=== PATIENT | female | born 1960 | race Caucasian/White ===

== ENCOUNTER 2018-01-11 16:12 | Emergency (ER) | payer OTHER ==
[~2018-01-11] VITALS: Ht 162.6 cm; Wt 59.0 kg
[~2018-01-11 16:12] MED LIST: ALBU17I INH; CYCL5TAB PO; LORTA5 PO; MELO7.5T PO; NEFA200T PO
[2018-01-11 16:29] VITALS: BP 149/111; PULSE 104; RESP 20; TEMP 98.1; O2SAT 98
[2018-01-11] MEDS ORDERED: SYMB80AE INH (16:34)
--- NOTE | 2018-01-11 17:29 | PD ---
HPI Chief Complaint: Respiratory Symptoms Time Seen by Provider: 17:21 Travel History International Travel<30 days: No Contact w/Intl Traveler<30days: No Traveled to known affect area: No History of Present Illness HPI 57-year-old female presents to the emergency department under law enforcement custody with complaint of chest tightness and shortness of breath after being put in the back of the police car with no air conditioning, per the patient. She said it was too hot and it exacerbated her asthma/COPD. She uses her albuterol inhaler 2 hours ago with good relief of symptoms. She says her symptoms are better now. Reports wheezing that has also improved after using her albuterol inhaler. She also reports that she was supposed to be picking up her prescriptions for antibiotics for her bronchitis that she was diagnosed with yesterday by her primary care provider. She has no other emergent complaints. Symptoms relieved by albuterol inhaler. Aggravated by hot air in the back of the police car. Symptoms are mild in severity. Primary care provider is Dr. Berumen. No known allergies. History of asthma and COPD. Has no other medical complaints. No other modifying factors or associated signs and symptoms. PFSH Past Medical History Arthritis: Yes (RHEUMATOID) Asthma: Yes COPD: Yes Fibromyalgia: Yes Medical other: Yes (TMJ) Respiratory: Yes (ASTHMA) ?: Not Past Surgical History Abdominal Surgery: Yes (ADHESIONS REMOVED) Hysterectomy: Yes Other Surgery: Yes (BREAST AUGMENTATION) Social History Alcohol Use: Yes (2-12 BEERS ON WEEKENDS) Tobacco Use: Yes (/ PPD) Substance Use: No Allergies-Medications (Allergen,Severity, Reaction): Coded Allergies: No Known Allergies (Verified Adverse Reaction, Unknown, 01/11/18) Reported Meds & Prescriptions Reported Meds & Active Scripts Active Deltasone (Prednisone) 20 Mg Tab 40 Mg PO DAILY 4 Days Azithromycin 500 Mg Tab 500 Mg PO DAILY Proventil Mdi (Albuterol Sulfate) 17 Gm Aero 2 Puff INH Q4H PRN Hydrocodone/Acetaminophen 5 mg/325 mg 1 Tab Tab 1 Tab PO Q6 PRN Reported Symbicort Inh (Budesonide/Formoterol Fumarate) 80-4.5 Mcg/Act Aero 1 Puff INH Q12HR Flexeril (Cyclobenzaprine HCl) 5 Mg Tab 5 Mg PO HS Mobic (Meloxicam) 7.5 Mg Tab 7.5 Mg PO DAILY Serzone (Nefazodone HCl) 200 Mg Tab 400 Mg PO HS Serzone (Nefazodone HCl) 200 Mg Tab 200 Mg PO DAILY Review of Systems Except as stated in HPI: all other systems reviewed are Neg Physical Exam Narrative GENERAL: Well-nourished, well-developed patient, in no acute distress ; afebrile, nontoxic-appearing SKIN: Warm and dry. HEAD: Atraumatic. Normocephalic. EYES: Pupils equal and round. No scleral icterus. No injection or drainage. ENT: Mucosa pink and moist. Airway patent. EARS: Bilateral pinnae and external canals appear within normal limits. NECK: Trachea midline. No lymphadenopathy. CARDIOVASCULAR: Regular rate and rhythm. No murmur appreciated. RESPIRATORY: No accessory muscle use. Lungs with very mild wheezing throughout to auscultation. Breath sounds equal bilaterally. No retractions or tachypnea. No Audible wheezing noted. GASTROINTESTINAL: Abdomen soft, non-tender, nondistended. Hepatic and splenic margins not palpable. Bowel sounds are active 4 quadrants. MUSCULOSKELETAL: No obvious deformities. No clubbing. No cyanosis. No edema. NEUROLOGICAL: Awake and alert. Oriented 3. No obvious cranial nerve deficits. Motor grossly within normal limits. Normal speech. Moves all extremities. 5/5 strength to all extremities. PSYCHIATRIC: Appropriate mood and affect; insight and judgment normal. Data Data Last Documented VS Vital Signs Date Time Temp Pulse Resp B/P (MAP) Pulse Ox O2 Delivery O2 Flow Rate FiO2 01/11/18 16:29 98.1 104 20 149/111 (124) 98 Orders Orders Prednisone (Deltasone) (01/11/18 17:30) Albuterol-Ipratropium Neb (Duoneb Neb) (01/11/18 17:30) Ed Discharge Order (01/11/18 17:33) [facility] Medical Decision Making Medical Screen Exam Complete: Yes Emergency Medical Condition: Yes Medical Record Reviewed: Yes Differential Diagnosis Asthma exacerbation, COPD exacerbation, viral illness Narrative Course 57-year-old female with history of COPD and asthma and is under law-enforcement colostomy with complaint of chest tightness and shortness of breath that she developed while in the back of the [employer] car. She used her albuterol inhaler about 2 hours ago with good relief of symptoms. Lungs have very mild wheezing in the bilateral bases. No retractions or tachypnea. Oxygen saturation 98% on room air. The patient is supposed to be picking up a prescription for antibiotics today being treated for viral illness that she has had for 1 week. I will prescribe azithromycin for discharge. Patient has albuterol inhaler. DuoNeb and Deltasone ordered and administered in the ER. Patient will be discharged after DuoNeb treatment. Azithromycin, Deltasone prescribed for home. Patient discharged to law enforcement custody. Instructed patient to follow up with primary care provider. Patient verbalizes understanding and agreement with treatment plan. Patient is medically cleared and stable for discharge. Discussed reasons to return to the emergency department. Patient agrees with treatment plan. The patients vital signs are stable and the patient is stable for outpatient follow-up and treatment. Patient discharged home, stable and in no acute distress. Diagnosis Primary Impression: COPD exacerbation Additional Impression: Viral illness Referrals: Primary Care Physician Patient Instructions: COPD (Chronic Obstructive Pulmonary Disease) (ED), General Instructions, Viral Syndrome (ED) Additional Instructions: Use Albuterol inhaler as prescribed Take oral steroids as prescribed and complete full course [id number] decongestants or antihistamines as directed and as needed for symptom management Your cough can last 4-6 weeks Drink plenty of fluids to prevent dehydration Use hot air humidifier to decrease cough exacerbation Turn off ceiling fans and sleep with head of bed elevated Avoid triggers such as second hand smoke, dust, known allergens Follow-up with your primary care provider Return to the emergency department immediately with worsening of symptoms Med/Other Pt SpecificInfo: Prescription(s) given Scripts Prednisone (Deltasone) 20 Mg Tab 40 MG PO DAILY for 4 Days, #8 TAB 0 Refills Prov: Mckenna Gandhi 01/11/18 Azithromycin (Azithromycin) 500 Mg Tab 500 MG PO DAILY for Infection, #5 TAB 0 Refills Prov: Mckenan Gandhi 01/11/18 Disposition: [address] [employer] ENF[employer] Condition: Stable Mckenna Gandhi Jan 11, 2018 17:29
[2018-01-11] MEDS ORDERED: predniSONE 20 MG TAB PO ONE (17:30)
[2018-01-11] MEDS ORDERED: RESP: ALBUTEROL 2.5 MG/IPRATROPIUM 0.5 MG NEB (SCH) INH ONE (17:30)
[2018-01-11] MEDS ORDERED: AZIT500T2 PO (17:31)
[2018-01-11] MEDS ORDERED: PRED-503 PO (17:31)
[2018-01-11 18:22] VITALS: BP 146/82
== END 2018-01-11 18:24 ==
LOC: NEPD 16:12
DX: J44.1 Chronic obstructive pulmonary disease with (acute) exacerbation (principal); B34.9 Viral infection, unspecified; F17.200 Nicotine dependence, unspecified, uncomplicated
CPT/HCPCS: 94664; 99283; J7512